=== PATIENT | female | born 1980 | race Asian ===

== ENCOUNTER 2020-06-22 11:11 | Outpatient (REF) | payer MEDICAID, SELFPAY ==
--- NOTE | 2020-06-22 10:00 | PAPFT_PTH ---
PATIENT: Sanjeev Xiao V LOC: [facility]#:[id number] AGE/SX: 39/F ROOM: RE06/22/[address]: Yue Ramirez : 1980 BED: DIS: 06/22/2020 SPEC #: [id number] RECD: 06/22/20 12:54 STATUS: ALMA RAUDEL #: [id number] AMBREEN: 06/22/20 10:[address]: Yue Ramirez DEPT: [facility] Cytology RECD BY: Ashley Richards ENTERED: 06/22/20 12:55 SP TYPE: PAPFT OTHR DR: Samina Elliott Tissues: 1 - CX/ENDOCX FOR PAP SMEARS Procedures: PAP THIN PREP/[facility] Screening HPV DNA PROBE Comments: [id number]
[2020-06-22 13:27] LABS: HCT 40.4 % (36.0-46.0); HGB 13.2 g/dL (11.2-15.7); MCH 28.9 pg (27.0-33.0); MCHC 32.7 % (32.0-36.0); MCV 88.4 fL (80-95); MPV 10.1 fL (8.0-11.0); Platelet Count 405 10^3/uL (130-400); RBC 4.57 10^6/uL (3.93-5.22); RDW 13.6 % (11.7-14.6); RDW-SD 44.3 fL; WBC 5.01 10^3/uL (4.4-10.8)
[2020-06-22 13:43] LABS: Anion Gap 6.5 mmol/L (3-11); BUN 10 mg/dL (7-18); CO2 27.5 mmol/L (21.0-32.0); CREATININE 0.6 mg/dL (0.55-1.02); Calcium 8.6 mg/dL (8.5-10.1); Calculated LDL 123 mg/dL (<100); Chloride 107 mmol/L (98-107); Cholesterol 218 mg/dL (<200); Glucose 88 mg/dL (74-106); HDL Cholesterol 87 mg/dL (40-60); Potassium 4.4 mmol/L (3.5-5.1); Sodium 141 mmol/L (136-145); Triglyceride 42 mg/dL (<150)
== END 2020-06-22 11:12 | disposition home or self-care (01) ==
LOC: NCHCN 11:11
PROVIDERS: PCP Internal Medicine Infectious Disease; Visit Provider Nurse Practitioner Family
DX: Z13.220 Encounter for screening for lipoid disorders (principal); Z13.228 Encounter for screening for other metabolic disorders; Z13.0 Encounter for screening for diseases of the blood and blood-forming organs and certain disorders involving the immune mechanism; Z12.4 Encounter for screening for malignant neoplasm of cervix; Z11.51 Encounter for screening for human papillomavirus (HPV); Z00.00 Encounter for general adult medical examination without abnormal findings
CPT/HCPCS: 80048; 80061; 85027; 88142; 87624

== ENCOUNTER 2021-06-19 13:51 | Outpatient (CLI) | payer MEDICAID, SELFPAY ==
--- NOTE | 2021-06-19 13:15 | DI.RAD_ITS ---
Exam(s) XR KNEE LT 4V AP,LAT,SVITLANA,PAT EXAM: XR KNEE LT 4V AP,LAT,SVITLANA,PAT CLINICAL HISTORY: L knee pain. TECHNIQUE: 2D digital imaging was performed. Four views. COMPARISON: No exams were available for comparison FINDINGS: BONES: No acute fracture is present. No bony destructive lesion is seen. JOINTS: The knee is normally aligned. No joint effusion is seen. Minimal periarticular spurring. SOFT TISSUE: Normal. IMPRESSION: Minimal degenerative changes. DATA REPOSITORY: RADIATION DOSE DELIVERED:
== END 2021-06-19 13:52 | disposition home or self-care (01) ==
LOC: DIORS 13:51
PROVIDERS: PCP Nurse Practitioner Family; Referring Provider Nurse Practitioner Family; Visit Provider Physician Assistant
DX: M25.562 Pain in left knee (principal); M25.862 Other specified joint disorders, left knee
CPT/HCPCS: 73564

== ENCOUNTER → 2021-06-27 00:58 | Outpatient (CLI) | payer MEDICAID, SELFPAY ==
--- NOTE | 2021-06-27 06:45 | DI.MRI_ITS ---
Exam(s) MR LOWER JOINT LT WO EXAM: MR LOWER JOINT LT WO CLINICAL HISTORY: PAIN, INTERNAL DERANGEMENT LT KNEE, M23.92 TECHNIQUE: Multiplanar multisequence MRI of the left knee was performed. COMPARISON: CR XR KNEE LT 4V AP,LAT,SVITLANA,PAT from 06/19/2021 FINDINGS: EFFUSION: There is a small amount of increased joint fluid. There is no Moulton cyst in the popliteal fossa. MARROW:There is mild subarticular bone edema in the posterior aspect of the lateral femoral condyle. No other abnormal intraosseous signal noted. There are no osteochondral defects. No loose intra-ar ticular bodies evident there are no significant osseous lesions. PATELLOFEMORAL COMPARTMENT: There is no significant thinning of the retropatellar cartilage. No evidence of fissure nor signific ant chondral defect. No osteochondral defect at this level.There is abnormal signal consistent with tearing at the junction of the medial patellar retinaculum and medial collateral ligament. There is no intraosseous signal to suggest recent patellar dislocation. CRUCIATE LIGAMENTS: Some increased signal is seen in the superior aspect of the anterior cruciate lig ament but no full-thickness tear.The posterior cruciate ligament is intact. MEDIAL COMPARTMENT/MEDIAL MENISCUS: There is mild meniscocapsular separation.No distinct meniscal tea r. No meniscal extrusion nor intrusion. The meniscal root is intact. There is mild fluid signal solis bjacent to the posterior aspect of the posterior horn but doubtful for true tear at this level. There are no chondral defects, osteochondral defects, subarticular marrow edema, nor osteophytes evid ent. MEDIAL COLLATERAL LIGAMENT: Partial tear at junction with the medial patellar retinaculum. LATERAL COMPARTMENT/LATERAL MENISCUS: There is no evidence of lateral meniscal tear.Mild subarticular bone edema seen in the posterior aspect of the lateral femoral condyle. No distinct osteochondral d efect at this level. No abnormal signal in the subjacent lateral tibial plateau.No soft tissue signa l abnormality seen in the posterolateral corner. ILIOTIBIAL BAND: Intact LATERAL COLLATERAL LIGAMENT COMPLEX: The fibular collateral ligament is intact. The biceps femoris t endon is intact.Popliteus muscle and tendon are intact. IMPRESSION: 1. There is partial tear of the MCL at its junction with the medial patellar retinaculum. There does not appear to be intraosseous evidence of recent patellar dislocation. 2. Mild increased signal seen in the upper half of the ACL but no high-grade tear of this structure. The posterior cruciate ligament is intact. There are no obvious meniscal tears. 3. Mild subarticular bone edema noted in the most posterior aspect of the lateral femoral condyle, no t associated with a formed osteochondral defect. No other abnormal intraosseous signal evident. 4. Small amount of increased joint fluid. No Moulton cyst. DATA REPOSITORY:
== END ==
PROVIDERS: PCP Nurse Practitioner Family; Visit Provider Student in an Organized Health Care Education/Training Program
DX: M23.8X2 Other internal derangements of left knee; M25.562 Pain in left knee; M25.462 Effusion, left knee; S83.412A Sprain of medial collateral ligament of left knee, initial encounter
CPT/HCPCS: 73721

== ENCOUNTER 2022-08-13 18:40 | Emergency (ER) | payer MEDICAID, SELFPAY ==
[2022-08-13 18:44] VITALS: BP 155/105; PULSE 68; RESP 16; TEMP 37.1; O2SAT 98
--- NOTE | 2022-08-13 20:16 | ED.GENADUL_ITS ---
Discharge Plan Disposition Patient Disposition: Home Condition: Stable Discharge Details Clinical Impression: Finger laceration, Laceration of finger nail bed Primary Care Provider: Yue Ramirez ED Provider: Ashley Manriquez Home Meds and New Rx's Prescriptions: Continued multivitamin [Daily Multi-Vitamin] Tablet 1 tab PO DAILY Refresh Classic (PF) 1.4-0.6 % dropperette 1 drp ophthalmic (eye) BID Discharge Instructions Instructions: Finger Laceration (ED) Additional Instructions: Take ibuprofen and Tylenol as needed for pain Change dressing every several days Apply bacitracin or Neosporin liberally to the nail and then wrap Allow to air dry at night and 4 to 5 days The sutures in your nailbed will not need to be removed, however 1 suture will need to be removed and the wound should be rechecked, in 10 to 12 days Keep clean and dry, do not submerge in water Return for spreading redness, fever, worsening pain I given you several tablets of oxycodone, this can be addictive and you should not operate a vehicle within 8 hours of taking this medication Referrals: Yue Ramirez [Primary Care Provider] - Discharge Data Discharge Date/Time-TO BE ENTERED AT DEPARTURE: 08/13/22 21:16 Medical Decision Making Patient has a laceration through the nailbed of her left fourth digit We discussed sutures versus glue, at however patient prefers sutures at this time Sutures were placed, bupivacaine was injected for persistent pain control and a small amount of oxycodone was administered No indication for antibiotics Will need suture removal in 12 days Xeroform dressing applied by nursing staff Return precautions reviewed and patient expressed understanding HPI General Date/Time Provider Initiated Documentation: 08/13/22 18:52 . HPI Narrative: This 42-year-old female presents with laceration to her left fourth digit while cutting an onion with a knife. Tetanus up-to-date per patient. Denies strength or sensation change Related Data Home Medications Medication Instructions Recorded Confirmed polyvinyl alcohol-povidone (PF) 1 drp ophthalmic (eye) BID 06/13/21 07/11/21 1.4 %-0.6 % eye drops in a dropperette (Refresh Classic (PF)) multivitamin (Daily Multi-Vitamin 1 tab PO DAILY 06/19/21 07/11/21 tablet) Allergies Allergy/AdvReac Type Severity Reaction Status Date / Time No Known Allergies Allergy Verified 07/11/21 10:21 General Stated Complaint: Laceration EDWIN: 4 PFSH All Active Problems (Updated 08/13/22 @ 20:17 by KVNG Castro) Finger laceration (Acute) Laceration of finger nail bed (Acute) MCL sprain of left knee (Acute ~05/2021) Medical History Pelvic floor instability Surgical History Hx of LASIK Social History Smoking/Tobacco Use Status: Former Tobacco Use Smoking risk assessment performed?: Yes Alcohol Intake: current Alcohol Intake frequency: holidays/special occasions only Alcohol type: beer Substance use type: does not use Current gender identity: female Do you feel safe at home: Yes Do you feel safe in your relationship?: Yes Course Vital Signs Vital signs: Vital Signs Temperature 37.1 C 08/13/22 18:44 Pulse 68 08/13/22 18:44 Respiratory Rate 16 08/13/22 18:44 Blood Pressure 155/105 H 08/13/22 18:44 Pulse Oximetry 98 08/13/22 18:44 Temperature 37.1 C 08/13/22 18:44 Temperature Source Skin 08/13/22 18:44 Pulse 68 08/13/22 18:44 Respiratory Rate 16 08/13/22 18:44 Blood Pressure 155/105 H 08/13/22 18:44 Blood Pressure Position Supine 08/13/22 18:44 Pulse Oximetry 98 08/13/22 18:44 Oxygen Delivery Method Room Air 08/13/22 18:44 Oxygen Flow Rate 0 08/13/22 18:44 Pain Level 2 08/13/22 18:44 Procedures Laceration Laceration 1: Site: hand Side (If applicable): left Size (cm): 1 Description: linear and other (involves nail) Local Anesthetic: Lidocaine 1% and Bupivicaine 0.25% Amount of anesthesia used (mL): 4 Pre-repair: wound explored and irrigated extensively Skin layer closed with: nylon and other (chronic) Size (cm): 5-0 Number of sutures: 3 Technique: simple, interrupted
== END 2022-08-13 21:16 | disposition home or self-care (01) ==
PROVIDERS: Emergency Provider Physician Assistant; PCP Nurse Practitioner Family
DX: S61.215A Laceration without foreign body of left ring finger without damage to nail, initial encounter (principal); W26.0XXA Contact with knife, initial encounter

== ENCOUNTER 2024-12-31 16:03 | Outpatient (REF) | payer MEDICAID, SELFPAY ==
[2024-12-31 19:00] LABS: HCT 41.1 % (36.0-46.0); HGB 13.3 g/dL (11.2-15.7); MCH 27.6 pg (27.0-33.0); MCHC 32.4 % (32.0-36.0); MCV 85 fL (80-95); MPV 10.4 fL (8.0-11.0); Platelet Count 365 10^3/uL (130-400); RBC 4.82 10^6/uL (3.93-5.22); RDW 14.7 % (11.7-14.6); RDW-SD 46.0 fL; WBC 7.07 10^3/uL (4.4-10.8)
[2024-12-31 19:18] LABS: ALT 41 U/L (14-59); AST 27 U/L (15-37); Albumin 4.0 g/dL (3.4-5.0); Alkaline Phosphatase 96 U/L (46-116); Anion Gap 10.4 mmol/L (3-11); BUN 10 mg/dL (7-18); Bilirubin, Total 0.3 mg/dL (0.2-1.0); CO2 27.6 mmol/L (21.0-32.0); Calcium 8.5 mg/dL (8.5-10.1); Calculated LDL 130 mg/dL (<100); Chloride 101 mmol/L (98-107); Cholesterol 249 mg/dL (<200); Estimated GFR 112.73 (mL/min/1.73m2); Glucose 90 mg/dL (74-106); HDL Cholesterol 97 mg/dL (>or=50); Potassium 3.4 mmol/L (3.5-5.1); Sodium 139 mmol/L (136-145); Total Protein 7.6 g/dL (6.4-8.2); Triglyceride 110 mg/dL (<150)
[2024-12-31 19:34] LABS: Hemoglobin A1C 5.8 % (<5.7)
[2025-01-01 19:02] LABS: HIV-1/2 Ag & Ab Screen Negative (Negative)
[2025-01-01 19:10] LABS: Hepatitis C Ab w Rflx HCV PCR Negative (Negative)
== END 2024-12-31 16:04 | disposition home or self-care (01) ==
LOC: NCHCN 16:03
DX: Z00.00 Encounter for general adult medical examination without abnormal findings (principal); Z13.1 Encounter for screening for diabetes mellitus; Z13.6 Encounter for screening for cardiovascular disorders
CPT/HCPCS: 80053; 80061; 85027; 86803; 87389; 83036

== ENCOUNTER → 2025-01-13 02:28 | Outpatient (CLI) | payer MEDICAID, SELFPAY ==
--- NOTE | 2025-01-13 | DI.MAMMO_ITS ---
Exam(s) MAMMO SCREENING EXAM: MAMMO SCREENING CLINICAL HISTORY: SCREENING MAMMO Z12.31. TECHNIQUE: Bilateral full field digital CC and MLO mammographic images were obtained with 3D tomosynthesis and utilizing computer aided detection (CAD). COMPARISON: Prior mammograms were reviewed. FINDINGS: There are no CAD designations. There are no new spiculated masses nor malignant appearing microcalcification groups. There is no significant architectural distortion nor skin thickening-retraction. IMPRESSION: No radiographic evidence of malignancy. BI-RADS Category 1 - Negative Breast Density - Category B - There are scattered areas of fibroglandular density. Breast density Category C or D implies that the patient has dense breast tissue. Dense breast tissue can make it harder to find cancer on a mammogram. Dense breast tissue is also associated with an increased risk of breast cancer. This information about the result of the mammogram report was provided to the patient to raise their awareness. Use this report when you speak with the patient about their risks for breast cancer, which includes their family history. At that time, you may recommend additional screening tests (Ultrasound or MRI) as these tests may add significant information. A negative radiographic report should not delay biopsy if a dominant or clinically suspicious mass is present. Up to ten percent of cancers are not identified on mammography. A negative report may reinforce clinical impression. Adenosis and dense breasts may obscure an underlying neoplasm. False positive reports average 6 to 10%. Patient will receive a letter notifying them of these results.
== END ==
DX: Z12.31 Encounter for screening mammogram for malignant neoplasm of breast (principal)
CPT/HCPCS: 77063; 77067